=== PATIENT | male | born 1955 | race Caucasian/White ===

== ENCOUNTER 2017-02-21 03:48 | Emergency (ER) | payer OTHER ==
[~2017-02-21] VITALS: Ht 200.7 cm; Wt 98.0 kg
[2017-02-21 08:22] VITALS: BP 128/80
== END 2017-02-21 08:22 | disposition home or self-care (01) ==
LOC: ER 03:48
DX: R09.89 Other specified symptoms and signs involving the circulatory and respiratory systems (principal)
CPT/HCPCS: 70360; 99284